=== PATIENT | male | born 1945 | race Caucasian/White ===

== ENCOUNTER 2021-12-26 08:59 | Emergency (ER) | payer OTHER ==
[2021-12-26 09:07] VITALS: BP 132/67; PULSE 85; RESP 18; TEMP 98.5; BMI 32.5
[2021-12-26] MEDS ORDERED: DIPHTH,PERTUSS(ACELL),TET 0.5 ML DISP.SYRIN IM ONE ×2 (09:33→09:55)
== END 2021-12-26 10:00 | disposition home or self-care (01) ==
LOC: JERFT 08:59
PROC: 0HQFXZZ Repair Right Hand Skin, External Approach (ICD-10-PCS; principal; 2021-12-26)
PROC: 3E0234Z Introduction of Serum, Toxoid and Vaccine into Muscle, Percutaneous Approach (ICD-10-PCS; 2021-12-26)
DX: S61.411A Laceration without foreign body of right hand, initial encounter (principal)
CPT/HCPCS: 12001; 90471; 90715; 99284-25

== ENCOUNTER 2023-04-02 16:49 | Emergency (ER) | payer OTHER ==
[2023-04-02 17:06] VITALS: BP 114/72; PULSE 78; RESP 18; TEMP 97.7; BMI 32.4
== END 2023-04-02 18:08 | disposition home or self-care (01) ==
LOC: JERFT 16:49 → JER 16:49 → JERFT 18:08
DX: H92.02 Otalgia, left ear (principal); H60.502 Unspecified acute noninfective otitis externa, left ear; H66.012 Acute suppurative otitis media with spontaneous rupture of ear drum, left ear
CPT/HCPCS: 99283-25